=== PATIENT | female | born 1960 | race Caucasian/White ===

== ENCOUNTER 2016-12-24 10:58 | Outpatient (CLI) | payer OTHER ==
--- NOTE | 2016-12-24 11:32 | DIAGNOSTIC IMAGING REPORT ---
PROCEDURE: CT ABDOMEN/PELVIS W/O CONTRAST INDICATION: Abdominal pain. Sacroiliac and lumbar pain. TECHNIQUE: Noncontrast axial images with sagittal and coronal reformations. COMPARISON: None. FINDINGS: ABDOMEN: Gallbladder, liver, spleen, pancreas, kidneys, and aorta are normal. Bowel pattern is normal, including retrocecal appendix. There is a transitional segment at the lumbosacral junction which will be labeled a partially a lumbarized S1 for purposes of this study. There are marked degenerative changes of the L5-S1 facet joints (left greater than right). There mild degenerative changes of the L4-5 facet joints. PELVIS: There is a 2 cm partially calcified fibroid in the right ventral uterus. Pelvic structures are otherwise normal. No evidence of free fluid. There are mild degenerative changes of the sacroiliac joints. IMPRESSION: 1. Transitional segment at the lumbosacral junction (labeled a partially lumbarized S1 for purposes of this study). 2. Marked arthritic changes of the L5-S1 facet joints (left greater than right) with mild degenerate changes of the L4-5 facet joints.. 3. Mild fibroid changes of the uterus. 4. 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 5. Otherwise negative CT abdomen and pelvis. All CT scans at this facility use dose modulation, iterative reconstruction, and/or weight-based dosing when appropriate to reduce radiation dose to as low as reasonably achievable.
== END 2016-12-24 23:00 ==
LOC: CT SRH 10:58
DX: M53.3 Sacrococcygeal disorders, not elsewhere classified (principal); M51.36 Other intervertebral disc degeneration, lumbar region; D25.9 Leiomyoma of uterus, unspecified